=== PATIENT | female | born 1995 | race Caucasian/White ===

== ENCOUNTER 2016-12-12 22:47 | Observation (INO) | payer BC ==
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
[2016-12-12] MEDS ORDERED: Morphine 2 MG/ML Syringe IVPUSH ONE (22:54)
[2016-12-12] MEDS ORDERED: Ondansetron 4 MG/2 ML SDV IVPUSH ONE (22:54)
[2016-12-12] MEDS ORDERED: Morphine 2 MG/ML Syringe ONE (22:55)
[2016-12-12] MEDS ORDERED: Ondansetron 4 MG/2 ML SDV ONE (22:56)
[2016-12-12] MEDS ORDERED: Sodium Chloride 0.9% 1,000 ML IV SCH (23:00)
[2016-12-12 23:28] LABS: CHLORIDE,CL 110 mmol/L (98-110); SODIUM,NA 139 mmol/L (136-146)
[2016-12-13] MEDS ORDERED: Morphine 2 MG/ML Syringe IVPUSH ONE (00:55)
[2016-12-13] MEDS ORDERED: Bacitracin Oint 1 GM U/D Packet TOP ONE (01:09)
[2016-12-13] MEDS ORDERED: Iopamidol 755 Mg/ML 100 ML Bottle IVPUSH STA (01:36)
[2016-12-13 04:08] VITALS: BP 107/53
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
== END 2016-12-13 03:57 ==
LOC: MW.ED 22:47 → MW.MS 23:46
PROVIDERS: ADMIT Surgery; ATTEND Surgery
DX: S32.011A Stable burst fracture of first lumbar vertebra, initial encounter for closed fracture (principal); R18.8 Other ascites; F17.210 Nicotine dependence, cigarettes, uncomplicated; V86.69XA Passenger of other special all-terrain or other off-road motor vehicle injured in nontraffic accident, initial encounter; Z88.0 Allergy status to penicillin
CPT/HCPCS: 70450; 71010; 71260; 72125; 73080; 73610; 74177; 80053; 82150; 83690; 84702; 85025; 93005; 96361; 96374; 96375; 96376; 99285; G0378; J2270; J2405; J7040; Q9967; 72128-26; 72131-26; 99284

== ENCOUNTER 2019-01-29 18:57 | Emergency (ER) | payer BC ==
[2019-01-29] MEDS ORDERED: Sodium Chloride 0.9% 10 ML Syringe FLUSH PRN (19:06)
[2019-01-29] MEDS ORDERED: Sodium Chloride 0.9% 1,000 ML IV ONE (19:06)
[2019-01-29] MEDS ORDERED: Sodium Chloride 0.9% 2.5 ML Syringe FLUSH PRN (19:06)
[2019-01-29 19:13] VITALS: BP 113/75
--- NOTE | 2019-01-29 19:24 | EDM.PDOC ---
ED HPI GENERAL MEDICAL PROBLEM - General Chief Complaint: Chest Pain Stated Complaint: CHEST PAIN AND SHORTNESS OF BREATH Time Seen by Provider: 01/29/19 19:19 - History of Present Illness INITIAL COMMENTS - FREE TEXT/NARRATIVE: HISTORY AND PHYSICAL: History of present illness: Patient's 23-year-old white female with no significant past medical history presents with a concern of chest pain is somewhat atypical in nature described vaguely and occurred when [place] there is no associated shortness of breath nausea vomiting diaphoresis palpitations she denies trauma she states she's had similar episodes in the past but less intense she doesn't now with some anxiety. She is not on oral contraceptives has no history of DVT or PE or risk factors for such. Review of systems: As per history of present illness and below otherwise all systems reviewed and negative. Past medical history: As per history of present illness and as reviewed below otherwise noncontributory. Surgical history: As per history of present illness and as reviewed below otherwise noncontributory. Social history: No reported history of drug or alcohol abuse. Family history: As per history of present illness and as reviewed below otherwise noncontributory. Physical exam: HEENT: Atraumatic, normocephalic, pupils reactive, negative for conjunctival pallor or scleral icterus, mucous membranes moist, throat clear, neck supple, nontender, trachea midline. Lungs: Clear to auscultation, breath sounds equal bilaterally, chest nontender. Heart: S1S2, regular, negative for clicks, rubs, or JVD. Abdomen: Soft, nondistended, nontender. Negative for masses or hepatosplenomegaly. Negative for costovertebral tenderness. Pelvis: Stable nontender. Genitourinary: Deferred. Rectal: Deferred. Extremities: Atraumatic, negative for cords or calf pain. Neurovascular unremarkable. Neuro: Awake, alert, oriented. Cranial nerves II through XII unremarkable. Cerebellum unremarkable. Motor and sensory unremarkable throughout. Exam nonfocal. Diagnostics: Chest x-ray EKG CBC CMP PT TROPONIN Therapeutics: None Impression: #1 atypical chest pain Definitive disposition and diagnosis as appropriate pending reevaluation and review of above. chest Pain Score (Numeric/FACES): 6 - Related Data Allergies Allergy/AdvReac Type Severity Reaction Status Date / Time amoxicillin Allergy Hives Verified 01/29/19 19:13 Home Meds: Home Meds . 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 ED EXAM, GENERAL - Physical Exam Exam: See Below (see dictation) Course - Vital Signs Last Recorded V/S: Last Vital Signs Temp 36.5 C 01/29/19 18:57 Pulse 88 01/29/19 18:57 Resp 18 01/29/19 18:57 BP 113/75 01/29/19 18:57 Pulse Ox 100 01/29/19 18:57 - Orders/Labs/Meds Orders: Active Orders 24 hr Category Date Time Status Cardiac Monitoring [RC] . DIRECTED Care 01/29/19 19:06 Active Saline Lock Insert [OM.PC] Stat Oth 01/29/19 19:06 Ordered Labs: Laboratory Tests 01/29/19 01/29/19 01/29/19 Range/Units 19:22 19:26 19:26 WBC 6.40 (4.0-11.0) K/uL RBC 4.81 (4.30-5.90) M/uL Hgb 14.3 (12.0-16.0) g/dL Hct 43.2 (36.0-46.0) % MCV 89.8 (80.0-98.0) fL MCH 29.7 (27.0-32.0) pg MCHC 33.1 (31.0-37.0) g/dL RDW Std Deviation 41.2 (28.0-62.0) fl RDW Coeff of Mick 13 (11.0-15.0) % Plt Count 191 (150-400) K/uL MPV 9.80 (7.40-12.00) fL Neut % (Auto) 61.7 (48.0-80.0) % Lymph % (Auto) 27.2 (16.0-40.0) % Mobile % (Auto) 7.3 (0.0-15.0) % Eos % (Auto) 3.3 (0.0-7.0) % Baso % (Auto) 0.5 (0.0-1.5) % Neut # (Auto) 4.0 (1.4-5.7) K/uL Lymph # (Auto) 1.7 (0.6-2.4) K/uL Mobile # (Auto) 0.5 (0.0-0.8) K/uL Eos # (Auto) 0.2 (0.0-0.7) K/uL Baso # (Auto) 0.0 (0.0-0.1) K/uL Nucleated RBC % 0.0 /100WBC Nucleated RBCs # 0 K/uL INR 1.03 Sodium (136-145) mmol/L Potassium (3.5-5.1) mmol/L Chloride (98-107) mmol/L Carbon Dioxide (21.0-32.0) mmol/L BUN (7.0-18.0) mg/dL Creatinine (0.6-1.0) mg/dL Est Cr Clr Drug Dosing Estimated GFR (MDRD) ml/min Glucose (74-106) mg/dL Calcium (8.5-10.1) mg/dL Total Bilirubin (0.2-1.0) mg/dL AST (15-37) IU/L ALT (14-63) IU/L Alkaline Phosphatase (46-116) U/L Troponin I (0.000-0.056) ng/mL Total Protein (6.4-8.2) g/dL Albumin (3.4-5.0) g/dL Globulin (2.6-4.0) g/dL Albumin/Globulin Ratio (0.9-1.6) Urine Color YELLOW Urine Appearance CLEAR Urine pH 7.0 (5.0-8.0) Ur Specific Custer 1.010 (1.001-1.035) Urine Protein NEGATIVE (NEGATIVE) mg/dL Urine Glucose (UA) NEGATIVE (NEGATIVE) mg/dL Urine Ketones NEGATIVE (NEGATIVE) mg/dL Urine Occult Blood NEGATIVE (NEGATIVE) Urine Nitrite NEGATIVE (NEGATIVE) Urine Bilirubin NEGATIVE (NEGATIVE) Urine Urobilinogen 0.2 (<2.0) EU/dL Ur Leukocyte Esterase NEGATIVE (NEGATIVE) Urine RBC 0-2 (0-2/HPF) Urine WBC 0-2 (0-5/HPF) Ur Epithelial Cells FEW (NONE-FEW) Urine Bacteria FEW (NEGATIVE) 01/29/19 Range/Units 19:26 WBC (4.0-11.0) K/uL RBC (4.30-5.90) M/uL Hgb (12.0-16.0) g/dL Hct (36.0-46.0) % MCV (80.0-98.0) fL MCH (27.0-32.0) pg MCHC (31.0-37.0) g/dL RDW Std Deviation (28.0-62.0) fl RDW Coeff of Mick (11.0-15.0) % Plt Count (150-400) K/uL MPV (7.40-12.00) fL Neut % (Auto) (48.0-80.0) % Lymph % (Auto) (16.0-40.0) % Mobile % (Auto) (0.0-15.0) % Eos % (Auto) (0.0-7.0) % Baso % (Auto) (0.0-1.5) % Neut # (Auto) (1.4-5.7) K/uL Lymph # (Auto) (0.6-2.4) K/uL Mobile # (Auto) (0.0-0.8) K/uL Eos # (Auto) (0.0-0.7) K/uL Baso # (Auto) (0.0-0.1) K/uL Nucleated RBC % /100WBC Nucleated RBCs # K/uL INR Sodium 141 (136-145) mmol/L Potassium 3.5 (3.5-5.1) mmol/L Chloride 106 (98-107) mmol/L Carbon Dioxide 27.3 (21.0-32.0) mmol/L BUN 12 (7.0-18.0) mg/dL Creatinine 0.7 (0.6-1.0) mg/dL Est Cr Clr Drug Dosing TNP Estimated GFR (MDRD) > 60.0 ml/min Glucose 89 (74-106) mg/dL Calcium 9.0 (8.5-10.1) mg/dL Total Bilirubin 0.3 (0.2-1.0) mg/dL AST 16 (15-37) IU/L ALT 18 (14-63) IU/L Alkaline Phosphatase 48 (46-116) U/L Troponin I < 0.050 (0.000-0.056) ng/mL Total Protein 7.6 (6.4-8.2) g/dL Albumin 4.2 (3.4-5.0) g/dL Globulin 3.4 (2.6-4.0) g/dL Albumin/Globulin Ratio 1.2 (0.9-1.6) Urine Color Urine Appearance Urine pH (5.0-8.0) Ur Specific Custer (1.001-1.035) Urine Protein (NEGATIVE) mg/dL Urine Glucose (UA) (NEGATIVE) mg/dL Urine Ketones (NEGATIVE) mg/dL Urine Occult Blood (NEGATIVE) Urine Nitrite (NEGATIVE) Urine Bilirubin (NEGATIVE) Urine Urobilinogen (<2.0) EU/dL Ur Leukocyte Esterase (NEGATIVE) Urine RBC (0-2/HPF) Urine WBC (0-5/HPF) Ur Epithelial Cells (NONE-FEW) Urine Bacteria (NEGATIVE) Meds: Medications Discontinued Medications Generic Name Dose Route Start Last Admin Trade Name Freq PRN Reason Stop Dose Admin Sodium Chloride 1,000 mls @ 999 mls/hr 01/29/19 19:06 01/29/19 19:28 Normal Saline IV 01/29/19 20:06 999 mls/hr BOLUS ONE Administration Sodium Chloride 10 ml 01/29/19 19:06 Saline Flush FLUSH ASDIRECTED PRN Keep Vein Open Sodium Chloride 2.5 ml 01/29/19 19:06 Saline Flush FLUSH ASDIRECTED PRN Keep Vein Open Departure - Departure Time of Disposition: 22:44 Disposition: Home, Self-Care 01 Condition: Good Clinical Impression: Atypical chest pain - Discharge Information Instructions: Nonspecific Chest Pain, [id number] Referrals: PCP,Unknown [Primary Care Provider] - Forms: ED Department Discharge
[2019-01-29 19:56] LABS: CHLORIDE,CL 106 mmol/L (98-107); SODIUM,NA 141 mmol/L (136-145)
--- NOTE | 2019-01-29 20:01 | CR ---
INDICATION: Chest pain x2 hours INDICATION: Chest pain. TECHNIQUE: Chest, 2 portable views. COMPARISON: 12/13/2016. FINDINGS: Cardiovascular and mediastinum: Heart size and vasculature are normal in caliber and appearance. Mediastinum is within normal limits. Lungs and pleural space: Lungs are clear. No sign of infiltrate or mass. No sign of pleural effusion. No pneumothorax. Bones and soft tissues: No significant findings. IMPRESSION: Lungs are clear. Dictated by Jalil Rodriguez MD @ 01/29/2019 8:01:18 PM Dictated by: Jalil Rodriguez MD @ 01/29/2019 20:01:23 (Electronically Signed)
== END 2019-01-29 20:54 | disposition home or self-care (01) ==
LOC: MW.ED 18:57
DX: R07.89 Other chest pain (principal); Z88.1 Allergy status to other antibiotic agents
CPT/HCPCS: 36415; 71045; 80053; 81001; 84484; 85025; 85610; 93005; 96360; 99285; J7040; 99282